=== PATIENT | female | born 1955 | race Hispanic/Latino ===

== ENCOUNTER → 2024-01-25 11:00 | Outpatient (REF) | payer OTHER, SELFPAY ==
[2024-01-25 11:44] LABS: % Eosinophils 1.8 % (0-6); % Immature Granulocytes 0.2 % (0-0.5); % Lymphocytes 36.3 % (20.5-51.1); % Neutrophils 52.7 % (42.2-75.2); Absolute Basophils 0.1 10^3/uL (0-0.2); Absolute Eosinophils 0.1 10^3/uL (0-0.7); Absolute Lymphocytes 1.8 10^3/uL (1.2-3.4); Absolute Monocytes 0.4 10^3/uL (0.1-0.6); Absolute Neutrophils 2.6 10^3/uL (1.4-6.5); Hematocrit 38.7 % (37.0-47.0); Hemoglobin 13.2 g/dL (12.0-16.0); Mean Corp Hgb Conc. 34.1 g/dL (33.0-37.0); Mean Corpuscular Volume 93.9 fL (81.0-99.0); Mean Platelet Volume 9.1 fL (7.4-10.4); Nucleated Red Blood Cells % 0 %; Platelet Count 303 10^3/uL (130-400); Red Blood Cell Count 4.12 10^6/uL (4.20-5.40); Red Cell Dist. Width 12.6 % (11.5-14.5); White Blood Cell Count 4.9 10^3/uL (4.8-10.8)
[2024-01-25 12:15] LABS: ALT (SGPT) < 10 U/L (0-35); AST (SGOT) 25 U/L (14-36); Albumin 4.3 g/dl (3.5-5.0); Alkaline Phosphatase 113 U/L (38-126); Blood Urea Nitrogen 14 mg/dl (7-17); Calcium 9.5 mg/dl (8.4-10.2); Chloride 106 mmol/L (98-107); Glucose 84 mg/dl (70-99); HDL Cholesterol 65 mg/dl; LDL Cholesterol, Calculated 115 mg/dl; Potassium 4.3 mmol/L (3.5-5.1); Sodium 136 mmol/L (135-145); Total Bilirubin 0.6 mg/dl (0.2-1.3); Total Cholesterol 204 mg/dl (50-199); Total Protein 6.8 g/dl (6.3-8.2); Triglyceride 122 mg/dl (10-149); Very Low Density Lipoprotein 24 mg/dl (0-30); eGFR > 60.00
[2024-01-25 12:23] LABS: Carbon Dioxide 22 mmol/L (22-30)
[2024-01-25 12:39] LABS: TSH Reflex To Free T4 3.21 uIU/ml (0.47-4.68)
[2024-01-25 14:07] LABS: Glycohemoglobin (HgbA1c) 5.8 % (4.0-5.6)
== END ==
LOC: REG 11:00
PROVIDERS: ATTENDING PHYSICIAN Nurse Practitioner Family
DX: Z00.00 Encounter for general adult medical examination without abnormal findings (principal); R73.03 Prediabetes
CPT/HCPCS: 36415; 80053; 80061; 83036; 84443; 85025

== ENCOUNTER 2024-02-07 19:05 | Outpatient (RCR) | payer OTHER, SELFPAY | END 2024-02-07 23:59 | disposition home or self-care (01) | LOC: RPT 19:05 | PROVIDERS: ATTENDING PHYSICIAN Student in an Organized Health Care Education/Training Program | DX: S82.891D Other fracture of right lower leg, subsequent encounter for closed fracture with routine healing (principal); Z73.6 Limitation of activities due to disability; R26.2 Difficulty in walking, not elsewhere classified; R26.89 Other abnormalities of gait and mobility | CPT/HCPCS: 97110; 97112; 97162 ==

== ENCOUNTER 2024-02-14 12:07 | Outpatient (RCR) | payer OTHER, SELFPAY | END 2024-03-07 08:26 | disposition home or self-care (01) | LOC: RPT 12:07 | PROVIDERS: ATTENDING PHYSICIAN Student in an Organized Health Care Education/Training Program | DX: Z73.6 Limitation of activities due to disability (principal); S82.891S Other fracture of right lower leg, sequela; X58.XXXS Exposure to other specified factors, sequela | CPT/HCPCS: 97110; 97112 ==

== ENCOUNTER → 2024-03-22 15:43 | Outpatient (REF) | payer OTHER, SELFPAY | LOC: RAD 15:43 | PROVIDERS: ATTENDING PHYSICIAN Nurse Practitioner Family | DX: M25.532 Pain in left wrist (principal) | CPT/HCPCS: 73110; 73130 ==

== ENCOUNTER → 2024-04-06 07:25 | Outpatient (REF) | payer OTHER, SELFPAY | LOC: WDC 07:25 | PROVIDERS: ATTENDING PHYSICIAN Nurse Practitioner Family | DX: Z12.31 Encounter for screening mammogram for malignant neoplasm of breast (principal); Z78.0 Asymptomatic menopausal state | CPT/HCPCS: 77063; 77067; 77080 ==

== ENCOUNTER → 2024-12-29 12:12 | Outpatient (REF) | payer OTHER, SELFPAY ==
[2024-12-29 13:09] LABS: % Eosinophils 0.9 % (0-6); % Immature Granulocytes 0.3 % (0-0.5); % Lymphocytes 26.8 % (20.5-51.1); % Monocytes 6.1 % (1.7-9.3); % Neutrophils 64.9 % (42.2-75.2); Absolute Basophils 0.1 10^3/uL (0-0.2); Absolute Eosinophils 0.1 10^3/uL (0-0.7); Absolute Lymphocytes 1.5 10^3/uL (1.2-3.4); Absolute Monocytes 0.4 10^3/uL (0.1-0.6); Absolute Neutrophils 3.7 10^3/uL (1.4-6.5); Hemoglobin 13.3 g/dL (12.0-16.0); Mean Corp Hgb Conc. 33.3 g/dL (33.0-37.0); Mean Corpuscular Hgb 31.6 pg (27.0-31.0); Mean Platelet Volume 9.1 fL (7.4-10.4); Nucleated Red Blood Cells % 0 %; Platelet Count 304 10^3/uL (130-400); Red Blood Cell Count 4.21 10^6/uL (4.20-5.40); Red Cell Dist. Width 13.2 % (11.5-14.5); White Blood Cell Count 5.8 10^3/uL (4.8-10.8)
[2024-12-29 13:37] LABS: ALT (SGPT) < 10 U/L (0-35); AST (SGOT) 20 U/L (14-36); Albumin 4.1 g/dl (3.5-5.0); Alkaline Phosphatase 89 U/L (38-126); Blood Urea Nitrogen 12 mg/dl (7-17); Calcium 9.4 mg/dl (8.4-10.2); Carbon Dioxide 22 mmol/L (22-30); Chloride 110 mmol/L (98-107); Glucose 86 mg/dl (70-99); HDL Cholesterol 65 mg/dl; LDL Cholesterol, Calculated 143 mg/dl; Potassium 4.2 mmol/L (3.5-5.1); Sodium 139 mmol/L (135-145); Total Bilirubin 0.7 mg/dl (0.2-1.3); Total Cholesterol 223 mg/dl (50-199); Total Protein 6.7 g/dl (6.3-8.2); Triglyceride 76 mg/dl (10-149); Very Low Density Lipoprotein 15 mg/dl (0-30); eGFR > 60.00
[2024-12-29 14:05] LABS: Glycohemoglobin (HgbA1c) 5.5 % (4.0-5.6)
[2024-12-29 14:14] LABS: TSH Reflex To Free T4 2.75 uIU/ml (0.47-4.68)
== END ==
LOC: REG 12:12
PROVIDERS: ATTENDING PHYSICIAN Nurse Practitioner Adult Health
DX: R30.0 Dysuria (principal); R73.03 Prediabetes; R00.2 Palpitations; K21.9 Gastro-esophageal reflux disease without esophagitis; I10 Essential (primary) hypertension
CPT/HCPCS: 36415; 80053; 80061; 83036; 84443; 85025

== ENCOUNTER → 2025-01-12 15:06 | Outpatient (REF) | payer OTHER, SELFPAY | LOC: RAD 15:06 | PROVIDERS: ATTENDING PHYSICIAN Nurse Practitioner Adult Health | DX: R30.0 Dysuria (principal) | CPT/HCPCS: 76770 ==

== ENCOUNTER 2025-02-02 12:45 | Emergency (ER) | payer SELFPAY ==
[2025-02-02 12:47] VITALS: BP 118/81
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
--- NOTE | 2025-02-02 15:07 | EDRN ---
REviewed discharge instructions with patient. Verbalized understanding. Ambulated with steady gait to the lobby.
[2025-02-02 15:09] VITALS: BP 124/69
== END 2025-02-02 14:45 | disposition home or self-care (01) ==
LOC: EMR 12:45
PROVIDERS: EMERGENCY PHYSICIAN Emergency Medicine; FAMILY PHYSICIAN Obstetrics & Gynecology
DX: S09.90XA Unspecified injury of head, initial encounter (principal); W22.8XXA Striking against or struck by other objects, initial encounter; Y99.0 Civilian activity done for income or pay
CPT/HCPCS: 99284; 70450

== ENCOUNTER → 2025-04-09 13:58 | Outpatient (REF) | payer OTHER, SELFPAY | LOC: WDC 13:58 | PROVIDERS: ATTENDING PHYSICIAN Nurse Practitioner Adult Health | DX: Z12.31 Encounter for screening mammogram for malignant neoplasm of breast (principal); Z12.39 Encounter for other screening for malignant neoplasm of breast | CPT/HCPCS: 77063; 77067 ==